=== PATIENT | male | born 1975 | race Two or more races ===

== ENCOUNTER 2020-06-11 19:50 | Emergency (ER) | payer OTHER ==
[2020-06-11 19:59] VITALS: BP 118/79; PULSE 97; TEMP 98.7; BMI 42.6
[2020-06-11] MEDS ORDERED: BAMLANIVIMAB 700 MG in SODIUM CHLORIDE 250 ML IVPB ONE (20:25)
== END 2020-06-11 21:15 | disposition home or self-care (01) ==
LOC: JER 19:50 → JCOVINFU 19:50
DX: U07.1 COVID-19 (principal)
CPT/HCPCS: 96374; 99284-25